=== PATIENT | female | born 1990 | race African-American/Black ===

== ENCOUNTER 2023-04-17 08:58 | Emergency (ER) | payer SELFPAY ==
[2023-04-17 09:02] VITALS: BP 131/107; PULSE 115; RESP 20; TEMP 36.6; O2SAT 100; BMI 23.8
--- NOTE | 2023-04-17 09:18 | ED_ITS ---
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 Flank pain, dysuria, chills . Tylenol not helping the pain. not too long ago per patient. 32-year-old woman presenting to the emergency department with complaint of dysuria and now left greater than right flank area pain. Was diagnosed with a urinary tract infection 2 or more weeks ago. She apparently lost the prescription possibly in her truck. And so never got it filled. Does not get recurrent urinary tract infections. She is a long-roving hauler with a partner/teammate. Has been experiencing some chills; no fever measured. Has tried Tylenol for pain without help. Incidentally noting on triage ?not too long going ?. Has had some nausea but not now. I ask about screening for STIs, specifically gonorrhea and chlamydia, and she says sure that would be good. No unusual vaginal discharge. Admittedly does not hydrate as much as she probably should she says. Related Data Previous Rx's Medication Instructions Recorded cephalexin 500 mg capsule 500 mg PO TID 7 days #21 caps 04/17/23 hydrocodone 5 mg-acetaminophen 325 1 - 2 tab PO Q4-6H PRN pain #4 tabs 04/17/23 mg tablet Allergies Allergy/AdvReac Type Severity Reaction Status Date / Time No Known Drug Allergies Allergy Verified 04/17/23 09:02 Review of Systems Status of ROS: Reports: 6 or more systems reviewed and unremarkable except as noted in History and below [facility] Social History Smoking Status: Never smoker How often do you have a drink containing alcohol: 2-4 times a month How often do you have six or more drinks on one occasion: Never AUDIT-C Alcohol total score: 2 Non-prescribed substance use: denies use service: No Exam Narrative: Exam Narrative: Pleasant. NAD though it seems generally uncomfortable. Numerous tattoos. Perioral piercings. Breathing easily. Cranial nerves 2-12 intact. Transitions as if uncomfortable. Lungs are clear. Heart is sounded to be tachycardic on initial auscultation. Regular rhythm. Abdomen is soft and not particularly tender. Maybe a little uncomfortable in the suprapubic area. Not experiencing flank tenderness at this time. No midline back tenderness. Extremities are w ithout edema. Eyelids are puffy and she acknowledges that has been crying. Const: Vital Signs, click to edit/add: Vital Signs - 24 hr 04/17/23 09:02 04/17/23 10:59 04/17/23 12:23 Temperature 97.8 F 98.6 F Pulse Rate [Pulse Oximeter] 115 H 87 97 Respiratory Rate 20 20 20 Blood Pressure [Le ft Upper Arm] 131/107 H 116/74 143/85 H Pulse Oximetry 100 100 99 Oxygen Delivery Me thod Room Air Room Air Documenting provider has reviewed patient's vital signs: yes Course Vital Signs Vital signs: Initial Vital Signs Temperature 97.8 F 04/17/23 09:02 Temperature Source Temporal Artery Scan 04/17/23 09:02 Pulse Rate 115 H 04/17/23 09:02 Respiratory Rate 20 04/17/23 09:02 Blood Pressure 131/107 H 04/17/23 09:02 Blood Pressure Mean 115 H 04/17/23 09:02 Blood Pressure Position Sitting 04/17/23 09:02 Pulse Oximetry 100 04/17/23 09:02 Vital Signs Temperature 97.8 F 04/17/23 09:02 Pulse Rate 115 H 04/17/23 09:02 Respiratory Rate 20 04/17/23 09:02 Blood Pressure 131/107 H 04/17/23 09:02 Pulse Oximetry 100 04/17/23 09:02 Temperature 98.6 F 04/17/23 12:23 Pulse Rate 97 04/17/23 12:23 Respiratory Rate 20 04/17/23 12:23 Blood Pressure 143/85 H 04/17/23 12:23 Pulse Oximetry 99 04/17/23 12:23 Oxygen Delivery Method Room Air 04/17/23 12:23 Medical Decision Making MDM Narrative Medical decision making narrative: Presumably urinary tract infection. Will screen for gonorrhea and chlamydia as well. Check labs for other evidence of pyelo. Tachycardia on arrival. Could be aseptic cystitis. No significant degree of reproducible pain to suggest other pelvic issue perhaps ovarian. Urinalysis is grossly positive with presence of nitrites as well. White count was not elevate. CRP a little elevated. Gonorrhea chlamydia testing is still pending. With degree of flank pain that she had been describing was given IV fluids, ketorolac and then with confirmation of positive urine, a g of Rocephin. On reassessment reports feeling markedly improved. Still with a little soreness in her flanks. No longer tachycardic. Anxious to return to her truck. She expresses concern of recurrence of pain. I think ibuprofen would be more effective which he acknowledges. After further discussion though I will make small quantity of [place] available. 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 I mentioned that hydration and NSAIDs and antibiotics should be sufficient to turn this around. See patient discharge plan Lab Data Lab results reviewed: Yes I reviewed the patient's lab results Labs: Lab Results 04/17/23 04/17/23 Range/Units 09:05 10:00 WBC 8.01 (4.50-11.00) K/uL RBC 4.49 (4.00-5.20) m/uL Hgb 9.8 L (12.0-16.0) gm/dL Hct 33.3 (33.0-51.0) % MCV 74 L (80-100) fL MCH 22 L (26-34) pg MCHC 29 L (32-36) gm/dL RDW Coeff of Goyo 18.2 H (11.5-15.5) % Plt Count 373 (140-440) K/uL Neut % (Auto) 59.5 (42.0-72.0) % Lymph % (Auto) 28.3 (20-44) % Williams % (Auto) 9.6 (0.0-11.0) % Eos % (Auto) 2.0 (0.0-7.0) % Baso % (Auto) 0.2 (0.0-3.0) % Neut # (Auto) 4.76 (1.7-7.0) K/uL Lymph # (Auto) 2.27 (0.90-2.90) K/uL Williams # (Auto) 0.80 (0.00-0.90) K/UL Eos # (Auto) 0.16 (0.00-0.50) K/uL Baso # (Auto) 0.02 (0.00-0.30) K/uL Abs Immat Gran (auto) 0.03 (0.00-0.30) K/uL Imm/Tot Granulo (auto) 0.4 % Diff Slide Review Acceptable Review (Acceptable) Sodium 141 (135-149) mmol/L Potassium 3.6 (3.6-5.1) mmol/L Chloride 106 (96-114) mmol/L Carbon Dioxide 26 (20-32) mmol/L Anion Gap 9 (7-15) mEq/L BUN 9 (5-24) mg/dL Creatinine 0.6 (0.5-1.5) mg/dL Estimated Creat Clear 105.48 Estimated GFR 121 ml/min Glucose 80 (60-115) mg/dL Calcium 9.3 (8.4-10.6) mg/dL C-Reactive Protein 2.1 H (0.5-1.0) mg/dL Urine Color Yellow (Yellow) Urine Appearance Cloudy A (Clear) Urine pH 8.5 (5.0-8.5) Ur Specific [place] 1.020 (1.000-1.030) Urine Protein 1+ A (Negative) Urine Glucose (UA) Negative (Negative) Urine Ketones Negative (Negative) Urine Blood 1+ A (Negative) Urine Nitrite Positive A (Negative) Urine Bilirubin Negative (Negative) Urine Urobilinogen 1.0 (0.2-1.0) Ur Leukocyte Esterase 1+ A (Negative) Urine RBC 2-5 A (0-2) Urine WBC 10-25 A (0-5) Ur Squamous Epith Cells Few (None-Few) Urine Bacteria Many A (None) Discharge Plan Discharge Clinical Impression: UTI (urinary tract infection), Flank pain Condition: Improved Additional Instructions: Focus on hydration with unsugared/unsweetened liquid like water. Can take up to 800 mg of ibuprofen or up to 1000 mg of acetaminophen per dose. Alternative to the ibuprofen might be up to 500 mg naproxen 2 times daily. Naproxen or ibuprofen can be combined with acetaminophen but not taken together. Remember that each tablet of [place] contains 325 mg of acetaminophen. As discussed, do not drive on [place]. A urine culture will be pending here. Prescriptions: New hydrocodone-acetaminophen 5-325 mg tablet 1 - 2 tab PO Q4-6H PRN (Reason: pain) Qty: 4 0RF cephalexin 500 mg capsule 500 mg PO TID 7 Days Qty: 21 0RF Follow Up/Referrals: Provider,Not a Local [Primary Care Provider] - Stand Alone Forms: [employer] Info Instructions
[2023-04-17 09:20] LABS: Appearance Urine Cloudy (Clear); Bilirubin Urine Negative (Negative); Blood Urine 1+ (Negative); Color Urine Yellow (Yellow); Glucose Urine Negative (Negative); Ketones Urine Negative (Negative); Leukocyte Esterase Urine 1+ (Negative); Nitrite Urine Positive (Negative); Protein Urine 1+ (Negative); pH Urine 8.5 (5.0-8.5)
[2023-04-17 09:35] LABS: Bacteria Urine Many; Squamous Epithelial Cell Urine Few (None-Few)
[2023-04-17] MEDS: 0.9 % SODIUM CHLORIDE 1000 ml 1,000 ML IV (10:05)
[2023-04-17] MEDS: KETOROLAC 30 MG/ML inj IVP (10:05)
[2023-04-17 10:21] LABS: Basophils Absolute Auto 0.02 K/uL (0.00-0.30); Basophils Percent Auto 0.2 % (0.0-3.0); Eosinophils Absolute Auto 0.16 K/uL (0.00-0.50); Hematocrit 33.3 % (33.0-51.0); Hemoglobin* 9.8 gm/dL (12.0-16.0); Immature Granulocytes Abs Auto 0.03 K/uL (0.00-0.30); Immature Granulocytes Pct Auto 0.4 %; Lymphocytes Absolute Auto 2.27 K/uL (0.90-2.90); Lymphocytes Percent Auto 28.3 % (20-44); Mean Corpuscular HGB Conc 29 gm/dL (32-36); Mean Corpuscular Hemoglobin 22 pg (26-34); Mean Corpuscular Volume 74 fL (80-100); Monocytes Percent Auto 9.6 % (0.0-11.0); Neutrophils Absolute Auto 4.76 K/uL (1.7-7.0); Neutrophils Percent Auto 59.5 % (42.0-72.0); Platelet Count* 373 K/uL (140-440); RDW Coefficient of Variation % 18.2 % (11.5-15.5); Red Blood Count 4.49 m/uL (4.00-5.20); White Blood Count* 8.01 K/uL (4.50-11.00)
[2023-04-17 10:36] LABS: Chloride* 106 mmol/L (96-114); Potassium* 3.6 mmol/L (3.6-5.1); Sodium* 141 mmol/L (135-149)
--- NOTE | 2023-04-17 10:36 | ED.NURSE ---
pt resting in room.
[2023-04-17 10:39] LABS: Creatinine* 0.6 mg/dL (0.5-1.5); Est. Creatinine Clearance* 105.48; Estimated Glomerular Filt Rate 121 ml/min
[2023-04-17 10:40] LABS: Anion Gap 9 mEq/L (7-15); Blood Urea Nitrogen* 9 mg/dL (5-24); Calcium* 9.3 mg/dL (8.4-10.6); Carbon Dioxide* 26 mmol/L (20-32); Glucose* 80 mg/dL (60-115)
[2023-04-17 10:43] LABS: C Reactive Protein* 2.1 mg/dL (0.5-1.0)
[2023-04-17 10:55] LABS: Slide Review Reflex Yes
[2023-04-17 10:57] LABS: Slide Review Acceptable Review (Acceptable)
[2023-04-17 10:59] VITALS: BP 116/74; PULSE 87; RESP 20; O2SAT 100
[2023-04-17] MEDS: cefTRIAXone 1 GM in 0.9 % SODIUM CHLORIDE Mini-bag 100 ML IVPB (11:09)
[2023-04-17 12:23] VITALS: BP 143/85; PULSE 97; RESP 20; TEMP 37; O2SAT 99
== END 2023-04-17 13:07 | disposition home or self-care (01) ==
PROVIDERS: Emergency Provider Family Medicine
DX: N39.0 Urinary tract infection, site not specified (principal); R10.9 Unspecified abdominal pain
CPT/HCPCS: 36415; 80048; 81001; 85025; 86140; 87086; 87186; 87491; 87591; 96365; 96375; 99284; J0696; J1885; J7030